=== PATIENT | male | born 1960 | race Caucasian/White ===

== ENCOUNTER 2018-11-20 14:06 | Emergency (ER) | payer OTHER ==
[~2018-11-20] VITALS: Ht 172.7 cm; Wt 79.4 kg
[2018-11-20] MEDS ORDERED: GLUCOPHAGE XR500 MG (14:28)
== END 2018-11-20 19:17 | disposition home or self-care (01) ==
LOC: ER 14:06
DX: L02.511 Cutaneous abscess of right hand (principal); E11.9 Type 2 diabetes mellitus without complications

== ENCOUNTER 2019-03-26 12:49 | Emergency (ER) | payer OTHER ==
[~2019-03-26] VITALS: Ht 180.3 cm; Wt 77.1 kg
[~2019-03-26 12:49] MED LIST: GLUCOPHAGE XR500 MG
[2019-03-26] MEDS ORDERED: GLIMEPIRIDE2 MG (13:12)
[2019-03-26] MEDS ORDERED: ZIAC 2.5-6.251 EACH (13:13)
== END 2019-03-26 18:33 | disposition home or self-care (01) ==
LOC: ER 12:49
DX: L02.31 Cutaneous abscess of buttock (principal); E11.9 Type 2 diabetes mellitus without complications

== ENCOUNTER 2019-03-30 11:25 | Inpatient (IN) | payer OTHER ==
[~2019-03-30] VITALS: Ht 180.3 cm; Wt 77.1 kg
[~2019-03-30 11:25] MED LIST changes: +GLIMEPIRIDE2 MG; +ZIAC 2.5-6.251 EACH
--- NOTE | 2019-03-30 11:34 | NUR ---
PTE REFIERE QUE TIENE UN ABCESO EN EL GLUTIO DERECHO DESDE HACE VARIOS KATZ SE UBICA PTE EN PARESH CON BARANADA ELEVADA TIMBRE ACCESIBLE SE PRESENTA A LA JULIÁN CHANA
[2019-04-05] MEDS ORDERED: NEURONTIN300 MG PO (08:58)
[2019-04-05] MEDS ORDERED: PROSCAR5 MG PO (08:59)
[2019-04-05] MEDS ORDERED: JANUMET 50-1,01 EACH PO (08:59)
[2019-04-05] MEDS ORDERED: METRONIDAZOLE500 MG PO (09:00)
[2019-04-05] MEDS ORDERED: CEFDINIR300 MG PO (09:03)
== END 2019-04-05 12:05 | disposition home or self-care (01) | DRG 603 ==
LOC: ER 11:25 → MEDJ 21:04
PROVIDERS: ADMIT Internal Medicine
PROC: BW3GZZZ Magnetic Resonance Imaging (MRI) of Pelvic Region (ICD-10-PCS; 2019-03-31)
PROC: 0JD93ZZ Extraction of Buttock Subcutaneous Tissue and Fascia, Percutaneous Approach (ICD-10-PCS; principal; 2019-04-03)
DX: L02.215 Cutaneous abscess of perineum (principal); L02.31 Cutaneous abscess of buttock; K61.39 Other ischiorectal abscess; E11.65 Type 2 diabetes mellitus with hyperglycemia; B96.29 Other Escherichia coli [E. coli] as the cause of diseases classified elsewhere; B96.1 Klebsiella pneumoniae [K. pneumoniae] as the cause of diseases classified elsewhere; I10 Essential (primary) hypertension; Z79.4 Long term (current) use of insulin
CPT/HCPCS: 72196